=== PATIENT | male | born 1945 | race Caucasian/White ===

== ENCOUNTER 2024-01-10 06:21 | Day surgery (SDC) | payer BC ==
[2024-01-06 16:13] LABS: ALBUMIN 3.6 G/DL (3.4-5.0); ALKALINE PHOSPHATASE 114 IU/L (46-116); BLOOD UREA NITROGEN 22 MG/DL (7-18); CALCIUM 9.2 MG/DL (8.5-10.1); CHLORIDE 109 MMOL/L (99-107); CREATININE 1.05 MG/DL (0.60-1.10); PRE OP ALT 24 U/L (30-65); PRE OP ANION GAP 6 (8-16); PRE OP AST 18 U/L (10-37); PRE OP BILIRUB, TOTAL 0.7 MG/DL (0.0-1.0); PRE OP GLUCOSE 114 MG/DL (70-104); PRE OP POTASSIUM 4.6 MMOL/L (3.4-5.1); PRE OP SODIUM 146 MMOL/L (135-145); TOTAL CARBON DIOXIDE 31.4 MMOL/L (24-32); TOTAL PROTEIN 7.2 G/DL (6.4-8.2); eGFR 68 ML/MIN
[2024-01-06 16:21] LABS: BASOPHILS % (AUTO) 0.3 % (0-1); EOSINOPHILS # (AUTO) 0.1 X10'3 (0-0.9); EOSINOPHILS % (AUTO) 1.3 % (0-6); LYMPHOCYTES # (AUTO) 2.3 X10'3 (1.1-4.8); LYMPHOCYTES % (AUTO) 21.1 % (21-51); MEAN CORPUSCULAR HEMOGLOBIN 30.7 PG (27.0-31.0); MEAN CORPUSCULAR HGB CONC 33.2 g/dL (33.0-36.5); MEAN CORPUSCULAR VOLUME 92.5 FL (78-98); MEAN PLATELET VOLUME 8.2 FL (7.4-10.4); NEUTROPHILS # (AUTO) 7.5 X10'3 (1.8-7.7); NEUTROPHILS % (AUTO) 68.3 % (42-75); PRE OP HEMOGLOBIN 14.6 g/dL (14.0-17.9); PRE OP PLATELET COUNT 250 X10'3 (140-440); RED BLOOD COUNT 4.76 X10'6 (4.70-6.10); RED CELL DISTRIBUTION WIDTH 13.4 % (11.5-14.5)
[~2024-01-10] VITALS: Ht 177.8 cm; Wt 93.1 kg
[2024-01-10] VITALS (9 sets, daily range): BP systolic 132–152; BP diastolic 72–85; PULSE 60–65; RESP 10–16; TEMP 98; O2SAT 95–99
[2024-01-10] MEDS: DOCUMENT DATE & TIME OF BETA-BLOCKER PO ONE (05:30)
[2024-01-10] MEDS: clindamycin-Cleocin 900mg/D5W 50 ML IV ONE (05:30)
[~2024-01-10 06:21] MED LIST: ACET-1025 PO; ASPI81TA52 PO; ATOR40TA72 PO; FINA5TAB11 PO; FLO0.4C; GABA300T25; GLUCOSAMINE; METO-395 PO; MOBIC; MULT-1249 PO; NIFE-34 PO; OMEG-167 PO; OMEP20CA16 PO
[2024-01-10] MEDS: famotidine 20mg tablet PO ONE (07:25)
[2024-01-10] MEDS: ringers solution, lacted 1,000 ML IV SCH (07:26)
[2024-01-10] MEDS ORDERED: fentaNYL/PF 50MCG/1 ML 2ML syringe ONE (07:49)
[2024-01-10] MEDS ORDERED: midazolam 1 mg/ML 2ml injection ONE (07:50)
[2024-01-10] MEDS ORDERED: propofol inj 20 ML IV ONE (07:50)
[2024-01-10] MEDS ORDERED: rocuronium 10mg/ml inj IV ONE (07:50)
[2024-01-10] MEDS ORDERED: sevoflurane 250ml liquid IH ONE (07:52)
[2024-01-10] MEDS ORDERED: LIDOcaine 2% (20mg/ml) 5ml vial ONE (07:52)
[2024-01-10] MEDS ORDERED: proCHLORperazine 10 MG/2 ml inj IV PRN (08:35)
[2024-01-10] MEDS ORDERED: meperidine/PF 25mg/ml syringe IV PRN ×3 (08:35)
[2024-01-10] MEDS ORDERED: ondansetron/PF 4mg/2ml inj IV PRN (08:35)
[2024-01-10] MEDS ORDERED: ringers solution, lacted 1,000 ML IV SCH (08:35)
[2024-01-10] MEDS ORDERED: morphine 2 MG/ML inj. syringe IV PRN (08:35)
[2024-01-10] MEDS ORDERED: morphine 4 MG/ML inj SYRINge IV PRN (08:35)
[2024-01-10] MEDS: LIDOcaine 1% 30ml preserv. free vial ONE (08:38)
[2024-01-10] MEDS: BUPIVACAINE liposomal/PF 13.3 MG/ML vial IM ONE (08:38)
[2024-01-10] MEDS: BUPIVAcaine/PF 2.5mg/ml (0.25%) 10ml vial ONE ×2 (08:39)
[2024-01-10] MEDS ORDERED: glycopyrrolate 0.2mg/ml inj ONE (09:27)
[2024-01-10] MEDS ORDERED: ondansetron/PF 4mg/2ml inj ONE (09:27)
[2024-01-10] MEDS ORDERED: neostigmine methylsulfate 1 MG/ML 10ml vial ONE (09:27)
[2024-01-10] MEDS ORDERED: dexamethasone sod phosphate 4mg/ml inj. ONE (09:27)
[2024-01-10] MEDS: oxyCODONE/APAP 5-325mg tablet PO PRN (10:16)
== END 2024-01-10 10:40 | disposition home or self-care (01) ==
LOC: PAS 06:21
PROVIDERS: ATTEND Surgery
DX: K42.9 Umbilical hernia without obstruction or gangrene (principal); I10 Essential (primary) hypertension; E78.5 Hyperlipidemia, unspecified; I20.9 Angina pectoris, unspecified; G62.9 Polyneuropathy, unspecified; N40.0 Benign prostatic hyperplasia without lower urinary tract symptoms; Z79.82 Long term (current) use of aspirin; Z79.899 Other long term (current) drug therapy; Z95.0 Presence of cardiac pacemaker; Z98.890 Other specified postprocedural states; Z88.0 Allergy status to penicillin; Z80.8 Family history of malignant neoplasm of other organs or systems; Z83.3 Family history of diabetes mellitus; Z82.49 Family history of ischemic heart disease and other diseases of the circulatory system; Z82.3 Family history of stroke
CPT/HCPCS: 36415; 49591; 64488; 80053; 82948; 85025; 93005; C1781; C9290; J1100; J2250; J2405; J2704; J2710; J3010; J3490; J7030; J7120; Z7506; Z7508; Z7512; A4215; A4618